=== PATIENT | male | born 2000 | race Caucasian/White ===

== ENCOUNTER 2023-11-03 09:43 | Emergency (ER) | payer OTHER, SELFPAY ==
[2023-11-03 09:56] VITALS: BP 112/76; PULSE 87; RESP 16; TEMP 36.4; O2SAT 100
--- NOTE | 2023-11-03 10:50 | ED.EYEPROB ---
HPI - Eye Problem General Chief complaint: Eye Problems Stated complaint: FB EYE Time Seen by Provider: 11/03/23 10:32 Source: patient and RN notes reviewed Mode of arrival: ambulatory Limitations: no limitations History of Present Illness HPI Narrative: Patient presents today complaining of possible foreign body to the left eye that was sustained this morning at around 8:00 a.m.. States it may be glass, stand, or metal. Reports burning and watering. Denies vision changes. He does not currently wear any contacts or glasses. Related Data Home Medications Medication Instructions Recorded Confirmed albuterol sulfate 90 mcg/actuation 2 puff inhalation QID PRN Wheezing 11/03/23 11/03/23 aerosol inhaler amitriptyline 25 mg tablet 25 mg PO DAILY 11/03/23 11/03/23 omeprazole 40 mg capsule,delayed 40 mg PO DAILY 11/03/23 11/03/23 release trazodone 50 mg tablet 50 mg PO HS 11/03/23 11/03/23 Allergies Allergy/AdvReac Type Severity Reaction Status Date / Time amoxicillin Allergy Unknown unknown Verified 11/03/23 10:41 Penicillins Allergy Unknown unknown Verified 11/03/23 10:41 Review of Systems Review of Systems: CONSTITUTIONAL: Denies body aches, fever, chills, or sweats. EYES: Denies visual changes, redness, or discharge.+ foreign body sensation to left eye with burning and watering ENT: Denies rhinorrhea, congestion, sore throat, or otalgia. CARDIOVASCULAR: Denies chest pain, palpitations, or edema. RESPIRATORY: Denies cough or dyspnea. GASTROINTESTINAL: Denies abdominal pain, nausea, vomiting, or diarrhea. GENITOURINARY: Denies dysuria or hematuria. SKIN: Denies rash, itching, or wounds. MUSCULOSKELETAL: Denies back pain, joint pain, or myalgia. NEUROLOGIC: Denies headache, numbness, tingling, or weakness. PSYCH: Denies depression or anxiety. [facility] Family History Family History Other Diabetes mellitus Family history of arthritis Hypertension Comments At time of signature, I have reviewed and agree with nursing past medical, surgical, social and family history unless otherwise noted. Please see nursing chart for further information. There is no relevant family history pertinent to the presenting complaint Exam Narrative: GENERAL: Well-appearing, well-nourished, and in no acute distress. HEAD: Normocephalic, atraumatic. EYES: EOMI. PERRL. Mild injection to left eye. See procedure note. Right eye normal ENT: Mucous membranes pink and moist. NECK: Normal AROM. CHEST: No respiratory distress. EXTREMITIES: Normal range of motion. No edema. SKIN: Warm, dry, no rash. Capillary refill normal. Normal skin turgor. NEURO: No focal deficits. Alert and oriented x3. Gait steady. PSYCH: Normal affect. No signs of depression or anxiety. Course Course Level of Care: Express Care Visit Vital Signs Vital signs: Vital Signs Temperature 97.5 F L 11/03/23 09:56 Pulse Rate 87 11/03/23 09:56 Respiratory Rate 16 11/03/23 09:56 Blood Pressure 112/76 11/03/23 09:56 Pulse Oximetry 100 11/03/23 09:56 Temperature 97.5 F L 11/03/23 09:56 Pulse Rate 87 11/03/23 09:56 Respiratory Rate 16 11/03/23 09:56 Blood Pressure 112/76 11/03/23 09:56 Pulse Oximetry 100 11/03/23 09:56 Oxygen Delivery Room Air 11/03/23 10:20 Reviewed Procedures Other Procedure Procedure 1: Other Procedure: Left eye was anesthetized with 1 drop of tetracaine and anesthesia was achieved. The eye was flushed with eye wash. Lid was inverted and examined. Moistened Qtip was used to sweep underneath the upper eyelid with 0 foreign bodies resulting. Cornea was dyed with fluorescein and 2 corneal abrasions were noted to the medial cornea. Pt tolerated procedure well. MDM - Eye Problem MDM Narrative Medical decision making narrative: Patient's exam shows to corneal abrasions. He will be started on some antibacterial ey
[2023-11-03] MEDS: TETRACAINE HCL 0.5% OPHTH SOLN 4 ML BTL 1 DROP EACH EYE (11:00)
[2023-11-03] MEDS: DACRIOSE EYE IRRIGATION 118 ML BOTTLE 10 ML LEFT EYE (11:01)
[2023-11-03] MEDS: FLUORESCEIN SOD 1 MG/STRIP EACH EYE (11:01)
== END 2023-11-03 11:00 | disposition home or self-care (01) ==
PROVIDERS: Emergency Provider Nurse Practitioner
DX: S05.02XA Injury of conjunctiva and corneal abrasion without foreign body, left eye, initial encounter (principal); X58.XXXA Exposure to other specified factors, initial encounter
CPT/HCPCS: 99213; A9270; G0463